=== PATIENT | male | born 1965 | race Two or more races ===

== ENCOUNTER 2016-10-18 18:16 | Emergency (ER) | payer OTHER ==
[2016-10-18] MEDS ORDERED: IV NORMAL SALINE 1000ML BAG 1,000 ML IV SCH (19:59)
[2016-10-18 20:13] LABS: BASO % 1 % (0-3); EOS % 2 % (0-3); HEMATOCRIT 42.4 % (39.0-53.0); HEMOGLOBIN 14.6 g/dL (13.0-17.5); LYMPH # 2.1 x10^3/uL (1.0-4.8); LYMPH % 35 % (24-48); MEAN CORPUSCULAR HEMOGLOBIN 31 pg (25-35); MEAN CORPUSCULAR HGB CONC 35 g/dL (31-37); MEAN CORPUSCULAR VOLUME 89 fL (79-100); MONO % 6 % (0-9); NEUT % 57 % (31-73); PLATELET COUNT 178 x10^3/uL (140-400); RED BLOOD COUNT 4.75 x10^6/uL (4.30-5.70); RED CELL DISTRIBUTION WIDTH 13.4 % (11.5-14.5)
[2016-10-18 20:26] LABS: CALCIUM 9.1 mg/dL (8.5-10.1); CREATININE 0.7 mg/dL (0.7-1.3); GFR 118.9; POTASSIUM 3.8 mmol/L (3.5-5.1)
[2016-10-18] MEDS ORDERED: ASPIRIN 81 MG TAB.CHEW PO ONE (20:30)
--- NOTE | 2016-10-18 20:47 | PHYS DOC ---
Past Medical History Past Medical History: Anxiety, Depression, Diabetes-Type II Past Surgical History: No Surgical History Alcohol Use: Occasionally Drug Use: Marijuana Adult General Chief Complaint Chief Complaint: MULTIPLE COMPLAINTS HPI HPI Patient is a 51 year old female who presents with multiple complaints. Patient reports he was at work late afternoon when he started feeling lightheaded, having tingling in his feet, feeling uneasy, having mild tightness across his chest. No shortness of breath. Feeling okay at this time. Has been having fatigue as well as intermittent headache recently. He did not take medication for symptoms prior to coming to emergency department. No history of cardiac disease. Occasional smoker, however this was decades ago. Review of Systems Review of Systems Constitutional: Fatigue. Denies fever or chills Eyes: Denies change in visual acuity or eye pain HENT: Denies nasal congestion or sore throat Respiratory: Denies cough or shortness of breath Cardiovascular: Tightness across chest GI: Denies abdominal pain, nausea, vomiting, bloody stools or diarrhea : Denies dysuria or hematuria Musculoskeletal: Denies back pain or joint pain Integument: Denies rash or skin lesions Neurologic: Intermittent headache (none now). Denies focal weakness or sensory changes Current Medications Current Medications Current Medications Medications (Trade) Dose Ordered Sig/Opal Start Time Stop Time Status Last Admin Dose Admin Acetaminophen (Tylenol) 1,000 mg 1X ONCE 10/18/16 22:30 10/18/16 22:31 DC 10/18/16 22:26 1,000 MG Aspirin 324 mg 324 mg 1X ONCE 10/18/16 20:30 10/18/16 20:31 DC 10/18/16 20:26 324 MG Sodium Chloride (Iv Sodium Chloride 0.9% 1000ml Bag) 1,000 ml @ 1,000 mls/hr Q1H 10/18/16 19:59 10/18/16 20:58 DC 10/18/16 20:26 1,000 MLS/HR Allergies Allergies Allergies Coded Allergies Type Severity Reaction Last Updated Verified No Known Drug Allergies 10/18/16 No Physical Exam Physical Exam Constitutional: Well developed, well nourished, no acute distress, non-toxic appearance HENT: Normocephalic, atraumatic, bilateral external ears normal Eyes: EOMI, conjunctiva normal, no discharge Neck: Normal range of motion, no stridor Cardiovascular: Heart rate normal, regular rhythm, no murmur Lungs & Thorax: Bilateral breath sounds clear to auscultation Abdomen: Bowel sounds normal, soft, non-distended, no TTP Skin: Warm, dry, no erythema, no rash Extremities: No obvious deformity, no edema Neurologic: Alert and oriented X 3, no gross deficits noted Current Patient Data Vital Signs Vital Signs Date Time Temp Pulse Resp B/P Pulse Ox O2 Delivery O2 Flow Rate FiO2 10/18/16 23:08 68 134/81 97 Room Air 10/18/16 22:02 16 10/18/16 18:29 97.9 97.9 Lab Values Laboratory Tests Test 10/18/16 20:00 10/18/16 22:23 White Blood Count 6.0x10^3/uL (4.0-11.0) Red Blood Count 4.75x10^6/uL (4.30-5.70) Hemoglobin 14.6g/dL (13.0-17.5) Hematocrit 42.4% (39.0-53.0) Mean Corpuscular Volume 89fL (79-100) Mean Corpuscular Hemoglobin 31pg (25-35) Mean Corpuscular Hemoglobin Concent 35g/dL (31-37) Red Cell Distribution Width 13.4% (11.5-14.5) Platelet Count 178x10^3/uL (140-400) Neutrophils (%) (Auto) 57% (31-73) Lymphocytes (%) (Auto) 35% (24-48) Monocytes (%) (Auto) 6% (0-9) Eosinophils (%) (Auto) 2% (0-3) Basophils (%) (Auto) 1% (0-3) Neutrophils # (Auto) 3.4x10^3uL (1.8-7.7) Lymphocytes # (Auto) 2.1x10^3/uL (1.0-4.8) Monocytes # (Auto) 0.3x10^3/uL (0.0-1.1) Eosinophils # (Auto) 0.1x10^3/uL (0.0-0.7) Basophils # (Auto) 0.0x10^3/uL (0.0-0.2) Sodium Level 140mmol/L (136-145) Potassium Level 3.8mmol/L (3.5-5.1) Chloride Level 105mmol/L (98-107) Carbon Dioxide Level 27mmol/L (21-32) Anion Gap 8 (6-14) Blood Urea Nitrogen 17mg/dL (8-26) Creatinine 0.7mg/dL (0.7-1.3) Estimated GFR (Cockcroft-Gault) 118.9 Glucose Level 105mg/dL (70-99) H Calcium Level 9.1mg/dL (8.5-10.1) Troponin I Quantitative < 0.017ng/mL (0.000-0.055) < 0.017ng/mL (0.000-0.055) Laboratory Tests 10/18/16 20:00 Laboratory Tests 10/18/16 20:00 EKG EKG EKG (my read): sinus rhythm, rate 71, LAD, intervals wnl, no acute ischemic changes Radiology/Procedures Radiology/Procedures CXR (my read): No acute abnormality Course & Med Decision Making Course & Med Decision Making Pertinent Labs and Imaging studies reviewed. (See chart for details) Patient is 51-year-old male who presents with multiple complaints. Low suspicion for ACS, however will check EKG, labs including troponin, chest x- ray. Dose of aspirin. EKG and chest x-ray okay per my read. Labs unremarkable; troponin within normal limits. Discussed results with patient. Patient already has appointment with PCP scheduled for tomorrow. As he is low risk per HEART score, decision made to obtain troponin. This troponin was also within normal limits. Patient discharged home with instructions to keep follow up appointment for tomorrow and strict return precautions. Dragon Disclaimer Dragon Disclaimer This electronic medical record was generated, in whole or in part, using a voice recognition dictation system. Departure Departure Impression: Primary Impression: Dizziness Additional Impression: Chest discomfort Disposition: 01 HOME, SELF-CARE Condition: STABLE Referrals: FIDENCIO BRAGA (PCP) Patient Instructions: Chest Pain (Nonspecific), Dizziness Additional Instructions: Thank you for allowing us to provide care today in the Emergency Department. Keep your follow up appointment with your primary care doctor for tomorrow. Return promptly to the Emergency Department if you develop any new or concerning symptoms. Problem Qualifiers ZAHRA LOYD MD Oct 18, 2016 20:47
[2016-10-18] MEDS ORDERED: ACETAMINOPHEN 500 MG TABLET PO ONE (22:30)
[2016-10-18 23:08] VITALS: BP 134/81
--- NOTE | 2016-10-19 06:26 | EKG ---
[facility] [address] [place] [address] Test Date: 2016-10-18 Test Time: 18:30:42 Pat Name: PREMA JOLLY Department: Room: Gender: M [employer] Installer: : 1965 Requested By: ZAHRA LOYD Order Number: [id number] Reading MD: Measurements Intervals Bruni Rate: 71 P: 34 NE: 162 QRS: -12 QRSD: 86 T: -3 QT: 338 QTc: 371 Interpretive Statements SINUS RHYTHM LEFTWARD AXIS RI6.01 Unconfirmed report No previous ECG available for comparison
--- NOTE | 2016-10-19 08:07 | RAD ---
Chest, 2 views, 10/18/2016: History: Chest tightness The heart size is normal. There are calcified mediastinal lymph nodes compatible with old granulomatous disease. The pulmonary vascularity is normal. No pulmonary consolidation is seen. There is no evidence of pleural fluid. Minimal spurring is present in the spine. IMPRESSION: No acute cardiopulmonary abnormality is detected.
== END 2016-10-18 23:30 | disposition home or self-care (01) ==
LOC: ER 18:16
DX: R42 Dizziness and giddiness (principal); R07.89 Other chest pain; F41.9 Anxiety disorder, unspecified; F32.9 Major depressive disorder, single episode, unspecified; E11.9 Type 2 diabetes mellitus without complications; F12.10 Cannabis abuse, uncomplicated; Z87.891 Personal history of nicotine dependence
CPT/HCPCS: 36415; 71020; 80048; 84484; 85027; 93005; 96360; 96361; 99285; J7030